=== PATIENT | male | born 1970 | race Caucasian/White ===

== ENCOUNTER 2019-08-27 15:16 | Emergency (ER) | payer OTHER ==
--- NOTE | 2019-08-27 15:39 | ERPHSYRPT ---
- History of Present Illness Time Seen by Provider: 08/27/19 15:30 Source: patient Exam Limitations: no limitations Physician History: Patient is a 48-year-old male who has a long history of recurrent episodes of sciatica where he has low back pain which radiates down the left lower extremity. These occur every few months and sometimes as long as a year between episodes. He denies any bowel or bladder problems he knows when he injured his back this time he was working in the backyard. This pain started today Timing/Duration: today Method of Injury: twisted Quality: radiating, throbbing Back Pain Location: lumbar spine Back Pain Radiation: lower legs Severity of Pain-Max: moderate Severity of Pain-Current: moderate Modifying Factors: Improves With: nothing Associated Symptoms: denies symptoms, No urinary incontinence, No loss of bowel control, No constipation, No problems urinating Previous symptoms: same symptoms as today - Review of Systems Constitutional: No Fever, No Chills Eyes: No Symptoms Ears, Nose, & Throat: No Symptoms Respiratory: No Cough, No Dyspnea Cardiac: No Chest Pain, No Edema, No Syncope Abdominal/Gastrointestinal: No Abdominal Pain, No Nausea, No Vomiting, No Diarrhea Genitourinary Symptoms: No Dysuria Musculoskeletal: Back Pain, No Neck Pain Skin: No Rash Neurological: Gait Changes, No Dizziness, No Focal Weakness, No Sensory Changes Psychological: No Symptoms Endocrine: No Symptoms All Other Systems: Reviewed and Negative Significant Family History: Factor V Leiden Deficiency - Physical Exam General Appearance: mild distress Eye Exam: PERRL/EOMI, eyes nml inspection Neck Exam: normal inspection, non-tender, supple, full range of motion, No meningismus, No midline tenderness Respiratory Exam: normal breath sounds, lungs clear, No respiratory distress Cardiovascular Exam: regular rate/rhythm, normal heart sounds Gastrointestinal Exam: soft, No tenderness, No mass Back Exam: vertebral tenderness, muscle spasm, point tenderness Extremity Exam: normal inspection, limited range of motion, No calf tenderness, No pedal edema Peripheral Pulses: dorsalis-pedis (R): 2+, dorsalis-pedis (L): 2+ Neurologic Exam: alert, oriented x 3, cooperative, 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 as tested, normal mood/affect, sensation nml, abnormal gait, No motor deficits Skin Exam: normal color, warm, dry, No rash SpO2 Interpretation: normal O2 Delivery: Room Air - Course Nursing assessment & vital signs reviewed: Yes - Progress Progress: unchanged - Departure Departure Disposition: Home Clinical Impression: Sciatica Condition: Stable Critical Care Time: No Referrals: TOÑA STARR [Primary Care Provider] - Instructions: Sciatica (DC) Prescriptions: Hydrocodone/APAP 5-325 Tab^^^ [[place] 5-325 Tablet^^^] 1 tab PO Q6HPRN PRN #10 tablet MDD 6 PRN Reason: Pain Cyclobenzaprine HCl [Flexeril] 5 mg PO TID 5 Days #15 tablet Diclofenac Sodium 50 mg [Voltaren 50 mg] 50 mg PO TID 5 Days #15 tablet.ec
[2019-08-27 16:00] VITALS: BP 123/92; PULSE 69; O2SAT 98
== END 2019-08-27 15:59 | disposition home or self-care (01) ==
LOC: ED 15:16
DX: M54.40 Lumbago with sciatica, unspecified side (principal); X50.1XXA Overexertion from prolonged static or awkward postures, initial encounter; Y93.89 Activity, other specified; Y92.89 Other specified places as the place of occurrence of the external cause
CPT/HCPCS: 99283

== ENCOUNTER 2019-09-28 16:28 | Emergency (ER) | payer OTHER ==
[2019-09-28 16:39] VITALS: BP 135/86
[2019-09-28] MEDS ORDERED: TORAdol 30 mg Injection IM ONE (17:18)
[2019-09-28] MEDS ORDERED: DECADRON 10MG INJ. PO ONE (17:19)
[2019-09-28] MEDS ORDERED: TORAdol 30 mg Injection ONE (17:22)
[2019-09-28] MEDS ORDERED: DECADRON 10MG INJ. ONE (17:24)
--- NOTE | 2019-09-28 17:39 | ERPHSYRPT ---
- History of Present Illness Time Seen by Provider: 09/28/19 16:40 Source: patient Exam Limitations: no limitations Patient Subjective Stated Complaint: Pt states "I have had lower back pain for the past 2 days." Triage Nursing Assessment: PT presented alert and oriented X 3, skin pwd Pt ambulates with an upright steady gait, able to speak in clear full sentences pt in no apparent respiratory distress. Pt has wrap around his arm from donating p lasma 2 hours ago in [place]. Physician History: Patient is a 48-year-old male presents to our ED with complaints of recurrence of his sciatica. Pain started 2 days ago. Patient has had multiple x-rays in the past and declines additional x-rays at this time. Patient states his pain is typical of his usual sciatica. Pain described as a shooting sensation from his left lower back to his thigh. No other symptomology. No change in bowel bladder function. No fevers. No nausea or vomiting. No trauma. No recent back procedures. No saddle anesthesia. Pain worse with straight leg raise. Pain improved with rest. Patient voices no other complaints at this time. Timing/Duration: day(s) (Symptoms started 2 days ago.) Method of Injury: unknown Quality: burning, radiating Severity of Pain-Max: moderate Severity of Pain-Current: mild Modifying Factors: Improves With: movement (Movement and palpation reproduce symptoms.) Associated Symptoms: No fever, No chills, No sweating, No urinary incontinence, No loss of bowel control, No vomiting, No problems urinating, No light- headedness, No dizziness, No weakness, No sensory/motor loss, No lower back pain Allergies/Adverse Reactions: codeine Adverse Reaction (Mild, Verified 09/28/19 16:39) Itching Home Medications: No Reportable Medications [No Reported Medications] 09/28/19 [History] Hx Tetanus, Diphtheria Vaccination/Date Given: Yes Hx Influenza Vaccination/Date Given: No Hx Pneumococcal Vaccination/Date Given: No Immunizations Up to Date: Yes Travel Risk - International Travel Have you traveled outside of the country in past 3 weeks: No - Coronavirus Screening Are you exhibiting any of the following symptoms?: No Close contact with a COVID-19 positive Pt in past 14-21 Days: No - Review of Systems Constitutional: No Symptoms, No Fever, No Chills Eyes: No Symptoms Ears, Nose, & Throat: No Symptoms Respiratory: No Symptoms, No Cough, No Dyspnea Cardiac: No Symptoms, No Chest Pain, No Edema, No Syncope Abdominal/Gastrointestinal: No Symptoms, No Abdominal Pain, No Nausea, No Vomiting, No Diarrhea Genitourinary Symptoms: No Symptoms, No Dysuria Musculoskeletal: No Symptoms, No Back Pain, No Neck Pain Skin: No Symptoms, No Rash Neurological: No Symptoms, No Dizziness, No Focal Weakness, No Sensory Changes Psychological: No Symptoms Endocrine: No Symptoms Hematologic/Lymphatic: No Symptoms Immunological/Allergic: No Symptoms All Other Systems: Reviewed and Negative - Past Medical History Pertinent Past Medical History: Yes Psycho-Social History: Depression - Past Surgical History Past Surgical History: No - Social History Smoking Status: Current every day smoker How long have you smoked: years Exposure to second hand smoke: Yes Drug Use: none Patient Lives Alone: No Significant Family History: Factor V Leiden Deficiency - Nursing Vital Signs Nursing Vital Signs: Initial Vital Signs Temperature 97.8 F 09/28/19 16:34 Pulse Rate 98 H 09/28/19 16:34 Respiratory Rate 20 09/28/19 16:34 Blood Pressure 135/86 09/28/19 16:34 O2 Sat by Pulse Oximetry 96 09/28/19 16:34 Pain Scale Pain Intensity [Lower Back] 8 Pain Intensity 8 - Physical Exam General Appearance: no apparent distress, alert Eye Exam: PERRL/EOMI, eyes nml inspection Ears, Nose, Throat Exam: normal ENT inspection, TMs normal Neck Exam: normal inspection, non-tender, supple, full range of motion, No meningismus, No midline tenderness Respiratory Exam: normal breath sounds, lungs clear, No respiratory distress Cardiovascular Exam: regular rate/rhythm, normal heart sounds Gastrointestinal Exam: soft, No tenderness, No mass Back Exam: normal inspection, other (Tenderness to palpation at left SI joint.) Extremity Exam: normal inspection, normal range of motion, No calf tenderness, No pedal edema Peripheral Pulses: dorsalis-pedis (R): 2+, dorsalis-pedis (L): 2+ Neurologic Exam: alert, oriented x 3, 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 PO 09/28/19 17:20 10 mg STAT ONE Administration Dexamethasone Sodium Phosphate Confirm 09/28/19 17:24 Decadron 10mg Inj. Administered 09/28/19 17:25 Dose 10 mg .ROUTE .STK-MED ONE Ketorolac Tromethamine 60 mg 09/28/19 17:18 09/28/19 17:28 Toradol 30 Mg Injection IM 09/28/19 17:19 60 mg STAT ONE Administration Ketorolac Tromethamine Confirm 09/28/19 17:22 Toradol 30 Mg Injection Administered 09/28/19 17:23 Dose 60 mg .ROUTE .STK-MED ONE - Progress Progress: improved Progress Note: 09/28/19 17:39 Patient reassessed. Pain improved. Patient received Decadron and Toradol. Vital stable. Patient declined x-ray of the lumbar spine. Denies hematuria dysuria or any urinary symptomology. Pain reproduced with movement and palpation. Pain improved with rest. Will discharge patient home. Patient agrees to follow-up with his primary care doctor within 48 hours for reevaluation. 09/28/19 17:41 Counseled pt/family regarding: diagnosis, need for follow-up - Departure Departure Disposition: Home Clinical Impression: Back pain Condition: Stable Critical Care Time: No Referrals: TOÑA STARR [Primary Care Provider] - Additional Instructions: Discharge/Care Plan ALISON SPICER JR was seen on 09/28/19 in the Emergency Room. The patient was counseled regarding Diagnosis,Lab results, Imaging studies, need for follow up and when to return to the Emergency Room. Prescriptions given: Discharge Note I have spoken with the patient and/or caregivers. I have explained the patient's condition, diagnosis and treatment plan based on the information available to me at this time. I have answered the patient's and/or caregiver's questions and addressed any concerns. The patient and/or caregivers have as good understanding of the patient's diagnosis, condition and treatment plan as can be expected at this point. The vital signs have been stable. The patient's condition is stable and appropriate for discharge from the emergency department. The patient will pursue further outpatient evaluation with the primary care physician or other designated or consulting physician as outlined in the discharge instructions. The patient and/or caregivers are agreeable to this plan of care and follow-up instructions have been explained in detail. The patient and/or caregivers have received these instruction. The patient/and or caregivers are aware that any significant change in condition or worsening of symptoms should prompt an immediate return to this or the closest emergency department or call 911.
[2019-09-28 18:04] VITALS: PULSE 90; O2SAT 98
== END 2019-09-28 18:08 | disposition home or self-care (01) ==
LOC: ED 16:28
DX: M54.5 Low back pain (principal)
CPT/HCPCS: 96372; 99284; J1100; J1885

== ENCOUNTER 2019-11-02 16:41 | Emergency (ER) | payer BC, OTHER ==
--- NOTE | 2019-11-02 17:10 | ERPHSYRPT ---
- History of Present Illness Time Seen by Provider: 11/02/19 17:00 Source: patient Exam Limitations: no limitations Patient Subjective Stated Complaint: pt reports dental pain for one week, states he has an appointment saturday to get his his remaining upper [address] King. pt reports he is unable to sleep due to the pain. Triage Nursing Assessment: pt is aox3, pupils perrl, afebrile, resps easy and non labored, cap refill < 3 seconds, radial pulses strong and equal. pt with 4 upper teeth noted, slight swelling at the level of the gum, dental carries, one broken tooth noted as well. no facial edema noted. Physician History: 48 years old male with a history of multiple dental caries, periodontal disease was scheduled to have 4 upper teeth extraction early next week presented in the ER with 3 days of gradually worsening pain in the jaw with some swelling of gums. Partial relief with [id number] NSAIDs initially but since last night continuous pain. More with swallowing/cold and hot stuff. No fever or chills reported. Timing/Duration: gradual onset, days (3) Severity: moderate ENT Location: dental Prearrival Treatment: over the counter meds Associated Symptoms: facial pain/swelling, jaw pain, tooth pain Allergies/Adverse Reactions: codeine Adverse Reaction (Mild, Verified 11/02/19 16:56) Itching Hx Tetanus, Diphtheria Vaccination/Date Given: Yes Hx Influenza Vaccination/Date Given: No Hx Pneumococcal Vaccination/Date Given: No Immunizations Up to Date: Yes Travel Risk - International Travel Have you traveled outside of the country in past 3 weeks: No - Coronavirus Screening Are you exhibiting any of the following symptoms?: No Close contact with a COVID-19 positive Pt in past 14-21 Days: No - Review of Systems Constitutional: No Symptoms Eyes: No Symptoms Ears, Nose, & Throat: Mouth Swelling, Loose Teeth Respiratory: No Symptoms Cardiac: No Symptoms Abdominal/Gastrointestinal: No Symptoms Genitourinary Symptoms: No Symptoms Skin: No Symptoms Psychological: No Symptoms Endocrine: No Symptoms - Past Medical History Pertinent Past Medical History: Yes Psycho-Social History: Depression - Past Surgical History Past Surgical History: No - Social History Smoking Status: Current every day smoker How long have you smoked: years Exposure to second hand smoke: Yes Drug Use: none Patient Lives Alone: No Significant Family History: Factor V Leiden Deficiency - Nursing Vital Signs Nursing Vital Signs: Initial Vital Signs Temperature 98.5 F 11/02/19 16:47 Pulse Rate 88 11/02/19 16:47 Respiratory Rate 18 11/02/19 16:47 Blood Pressure 114/72 11/02/19 16:47 O2 Sat by Pulse Oximetry 100 11/02/19 16:47 Pain Scale Pain Intensity 9 - Physical Exam General Appearance: no apparent distress, alert Eye Exam: bilateral eye: normal inspection, PERRL, EOMI Nasal Exam: normal inspection Throat Exam: dental tenderness (Lose upper anterior teeth with gingival swelling and caries although her upper and lower teeth.) Neck Exam: normal inspection, non-tender Cardiovascular/Respiratory Exam: normal breath sounds, regular rate/rhythm Abdominal Exam: soft Neurologic Exam: alert, oriented x 3 Skin Exam: normal color SpO2 Interpretation: normal SpO2: 100 O2 Delivery: Room Air - Progress Progress: unchanged Progress Note: 11/02/19 17:18 Patient has gingival swelling with loose teeth and worsening pain. I would start him on antibiotics and NSAIDs for pain to prevent development of abscess . Recommended outpatient follow-up. Counseled pt/family regarding: diagnosis, need for follow-up - Departure Departure Disposition: Home Clinical Impression: Dental infection Condition: Stable Critical Care Time: No Referrals: TOÑA STARR [Primary Care Provider] - Follow Up with PCP/3 days Instructions: Tooth Abscess (DC), Dental Pain (DC) Additional Instructions: Take Tylenol/ibuprofen as needed. Keep appointment with your dentist for reevaluation and tooth extraction. Return to ER for increasing swelling/pain/fever chills etc. Prescriptions: Ibuprofen 600 mg PO Q6HPRN PRN 10 Days #20 tablet PRN Reason: Pain Amox Tr/Potass Clav. 875 mg [Augmentin 875-125 Tablet] 875 mg PO BID 10 Days #20 tablet
[2019-11-02 17:13] VITALS: BP 117/65; PULSE 86
[2019-11-02 17:19] VITALS: O2SAT 100
== END 2019-11-02 17:19 | disposition home or self-care (01) ==
LOC: ED 16:41
DX: K04.7 Periapical abscess without sinus (principal)
CPT/HCPCS: 99283